=== PATIENT | male | born 1985 ===

== ENCOUNTER 2019-06-18 10:45 | Day surgery (SDC) | payer BC ==
--- NOTE | 2019-05-28 06:25 | Anethesia Preoperative Eval ---
Anesthesia Pre-op PMH/ROS General Date of Evaluation: May 28, 2019 Time of Evaluation: 06:23 Anesthesiologist: jessica Mallampati Score Class I : Soft palate, uvula, fauces, pillars visible Class II: Soft palate, uvula, fauces visible Class III: Soft palate, base of uvula visible Class IV: Only hard plate visible Surgeon: eliud Diagnosis: anal hemmorhage Surgical Procedure: egd/colonoscopy Allergies: Coded Allergies: No Known Allergies (Unverified , 05/25/19) Guadalupe Reza MD May 28, 2019 06:25
[~2019-06-18] VITALS: Ht 170.2 cm; Wt 66.2 kg
[2019-06-18] VITALS (9 sets, daily range): BP systolic 100–119; BP diastolic 63–82
[~2019-06-18 10:45] MED LIST: Atropine Inj 1mg/10ml Syr IV PRN; DiphenhydrAMINE 50mg/ml Inj IVP PRN; Midazolam 2mg/2ml Inj IVP PRN; fentaNYL 100 mcg/2 mL IV PRN
[2019-06-18] MEDS ORDERED: AMBIEN5 M1 PO (11:06)
[2019-06-18] MEDS ORDERED: ATIVAN1 MG ORAL (11:07)
[2019-06-18] MEDS ORDERED: GABAPENTIN600 MG ORAL (11:07)
[2019-06-18] MEDS ORDERED: Lidocaine 1% MPF 10mg/ml 5ml ONE (11:30)
[2019-06-18] MEDS ORDERED: Propofol 200mg/20ml IV ONE (11:30)
--- NOTE | 2019-06-18 11:36 | Pre-Procedure Note/Attestation ---
Pre-Procedure Note/Attestation Complete Prior to Procedure Planned Procedure: not applicable Procedure Narrative: colonoscopy Indications for Procedure Pre-Operative Diagnosis: h/o colon polyps Attestation I attest that I discussed the nature of the procedure; its benefits; risks and complications; and alternatives (and the risks and benefits of such alternatives ), prior to the procedure, with the patient (or the patient's legal appeals representative). I attest that, if there was a reasonable possibility of needing a blood transfusion, the patient (or the patient's legal appeals representative) was given the [facility] standardized written summary, pursuant to the [address] Blood Safety Act ([place] Health and Safety Code # 1645, as amended). I attest that I re-evaluated the patient just prior to the surgery and that there has been no change in the patient's H&P, except as documented below: Ryan Hayden MD Jun 18, 2019 11:36
--- NOTE | 2019-06-18 11:37 | Short Stay Surgery H&P ---
History of Present Illness History of Present Illness Chief Complaint colon polyps HPI Brent Carrington is a 33 year old male who was admitted on for Colon Polyps, Hemorrhage,Abnormalities Of Rbc Patient History Allergies: Coded Allergies: No Known Allergies (Unverified , 06/18/19) PAST MEDICAL HISTORY: (1) GERD (gastroesophageal reflux disease) Medication History Scheduled Gabapentin* (Gabapentin*), 600 MG ORAL BEDTIME, (Reported) Lorazepam* (Ativan*), 1 MG ORAL DAILY, (Reported) Zolpidem Tartrate (Ambien), 10 MG PO BEDTIME, (Reported) Review of Systems Cardiovascular: Reports: no symptoms Respiratory: Reports: no symptoms Skeletal: Reports: no symptoms Gastrointestinal: Reports: gastro esophageal reflux disease Genitourinary: Reports: no symptoms Neurologic: Reports: no symptoms Endocrine: Reports: no symptoms Hematologic: Reports: no symptoms Physical Exam Vital Signs Last Vital Signs Date Time Temp Pulse Resp B/P (MAP) Pulse Ox O2 Delivery O2 Flow Rate FiO2 06/18/19 11:15 97.8 86 18 116/74 99 Room Air Skin: normal HENT: normal Heart: normal Lungs: normal Abdomen: normal Extremities: normal Plan Plan of Care colonoscopy Attestation Are the patient's medical conditions optimized for surgery? Attestation Response: yes Ryan Hayden MD Jun 18, 2019 11:37
[2019-06-18] MEDS ORDERED: Midazolam 2mg/2ml Inj IVP PRN (11:45)
[2019-06-18] MEDS ORDERED: Atropine Inj 1mg/10ml Syr IV PRN (11:45)
[2019-06-18] MEDS ORDERED: DiphenhydrAMINE 50mg/ml Inj IVP PRN (11:45)
[2019-06-18] MEDS ORDERED: fentaNYL 100 mcg/2 mL IV PRN (11:45)
--- NOTE | 2019-06-18 12:24 | Anethesia Preoperative Eval ---
Anesthesia Pre-op PMH/ROS General Date of Evaluation: Jun 18, 2019 Time of Evaluation: 11:30 Anesthesiologist: jessica ASA Score: ASA 2 Mallampati Score Class I : Soft palate, uvula, fauces, pillars visible Class II: Soft palate, uvula, fauces visible Class III: Soft palate, base of uvula visible Class IV: Only hard plate visible Mallampati Classification: Class II Surgeon: eliud Diagnosis: gerd, hx/o colon polyps Surgical Procedure: egd/colonoscopy Anesthesia History: none Social History: smoking - nonsmoker Family History: no anesthesia problems Allergies: Coded Allergies: No Known Allergies (Unverified , 06/18/19) Medications: see eMAR Patient NPO?: Yes Past Medical History Hematology/Immune: Reports: other - hx/o cephalic vein blood clot Musculoskeletal/Integumentary: Reports: other - back pain Anesthesia Pre-op Phys. Exam Physician Exam Last Vital Signs Date Time Temp Pulse Resp B/P (MAP) Pulse Ox O2 Delivery O2 Flow Rate FiO2 06/18/19 11:15 97.8 86 18 116/74 99 Room Air Constitutional: NAD Neurologic: CN 2-12 intact Cardiovascular: RRR Respiratory: CTA Gastrointestinal: S/NT/ND Airway Exam Mallampati Score: Class II MO: limited Neck: flexible TMD: 2fb ROM: limited Anesthesia Pre-op A/P Risk Assessment & Plan Assessment: asa2 Plan: mac Status Change Before Surgery: No Pre-Antibiotics Drug: Guadalupe Be MD Jun 18, 2019 12:24
--- NOTE | 2019-06-18 12:25 | Endoscopy Procedure Note ---
Endoscopy Procedure Note General Indication for Procedure: colon polyp, gastritis Procedures Performed: EGD, colonoscopy Operative Findings/Diagnosis: diverticulosis, hemorrhoids Specimen: yes Pt Tolerated Procedure Well: Yes Estimated Blood Loss: none Anesthesia Anesthesiologist: jessica Anesthesia: MAC Inserted Devices Implant(s) used?: No Quality Quality of Bowel Preparation: Good Did scope reach the cecum?: Yes Was there any complications?: No GI Core Measures 50 yrs or older w/o bx or poly: No 10yrs. F/U recommended: Yes If not recommended, why?: Above average risk 18 years or older w/prev. colo: Yes <3yrs. since last colonoscopy: No Ryan Hayden MD Jun 18, 2019 12:25
--- NOTE | 2019-06-18 14:02 | Immediate Post-Op Evaluation ---
Immediate Post-Op Evalulation Immediate Post-Op Evalulation Procedure: egd/colonoscopy w/bx Date of Evaluation: Jun 18, 2019 Time of Evaluation: 12:39 IV Fluids: 500ml 0.9ns Blood Products: none Estimated Blood Loss: negligible Blood Pressure Systolic: 109 Blood Pressure Diastolic: 73 Pulse Rate: 87 Respiratory Rate: 18 O2 Sat by Pulse Oximetry: 100 Temperature (Fahrenheit): 97.9 Pain Score (1-10): 0 Nausea: No Vomiting: No Complications none Patient Status: awake, reacts, patent Hydration Status: adequate Drug: Guadalupe Be MD Jun 18, 2019 14:02
--- NOTE | 2019-06-18 14:03 | 48 Hour Post Anesthesia Eval ---
Post Anesthesia Evaluation Procedure: egd/colonoscopy w/bx Date of Evaluation: Jun 18, 2019 Time of Evaluation: 12:41 Blood Pressure Systolic: 117 0: 81 Pulse Rate: 79 Respiratory Rate: 18 Temperature (Fahrenheit): 97.9 O2 Sat by Pulse Oximetry: 100 Airway: patent Nausea: No Vomiting: No Pain Intensity: 0 Hydration Status: adequate Cardiopulmonary Status: stable Mental Status/LOC: patient returned to baseline Post-Anesthesia Complications: none Follow-up care needed: N/A Guadalupe Reza MD Jun 18, 2019 14:03
--- NOTE | 2019-06-18 17:30 | Procedure Note ---
DATE OF PROCEDURE: 06/18/2019 SURGEON: Ryan Hayden M.D. PROCEDURE: Upper endoscope with biopsy and colonoscopy with biopsy. ANESTHESIA: Per Dr. Guadalupe Fregoso. INSTRUMENT: Olympus adult flexible upper endoscope and colonoscope. INDICATION: History of colonic polyps and chronic GERD. REASON FOR PROCEDURE: The procedure, risks, benefits, and possible consequences, including hemorrhage, aspiration, perforation and infection, and alternative treatments, were explained to the patient/legal guardian by Dr. Ryan aHyden and the patient/legal guardian understood and accepted these risks. PROCEDURE IN DETAIL: After informed consent was obtained and the patient was adequately sedated, Olympus upper endoscope was advanced from the mouth into the second portion of the duodenum and retroflexion was performed in the stomach. GE junction was found to be about 40 cm from the incisors. There was no evidence of any esophagitis. No hiatal hernia. In the stomach, there was diffuse gastritis. Random biopsy from antrum was obtained to rule out H. pylori infection. At this time, the upper endoscope was retrieved and the patient was turned over for colonoscopy. First, rectal exam was performed, which showed positive for internal hemorrhoids. Then, the scope was advanced from the rectum into the cecum and then subsequently into the terminal ileum. Quality of prep was good except for the cecum. The patient had normal colonoscopy examination except for some left-sided scattered diverticulosis. No obvious polyp was seen. There was minimum proctitis right above the dentate line, which was biopsied to rule out chronic proctitis. On retroflexion in the rectum, there was evidence of small nonbleeding internal hemorrhoids. SUMMARY OF FINDINGS: 1. Gastritis, status post biopsy. 2. Diverticulosis of the left colon, mild. 3. Internal hemorrhoids. 4. Minimum proctitis status post biopsy. RECOMMENDATIONS: Follow up biopsy results and treat accordingly. I want to thank Dr. Sushil Coleman for this kind referral. Ryan Hayden M.D. DR: GISSELLE JOB#: [id number] CC: Sushil Coleman M.D.; Fax#: [phone]
== END 2019-06-18 13:40 | disposition home or self-care (01) ==
LOC: GAS 10:45
DX: K21.9 Gastro-esophageal reflux disease without esophagitis (principal); K57.90 Diverticulosis of intestine, part unspecified, without perforation or abscess without bleeding; K64.8 Other hemorrhoids; K62.89 Other specified diseases of anus and rectum; Z86.010 Personal history of colon polyps; K29.50 Unspecified chronic gastritis without bleeding
CPT/HCPCS: 43239; 45380; J2704; 94003; 94150